=== PATIENT | male | born 1950 | race Two or more races ===

== ENCOUNTER 2018-09-20 14:01 | Inpatient (IN) | payer MEDICARE, OTHER ==
[~2018-09-20] VITALS: Ht 167.6 cm; Wt 87.1 kg
[2018-09-20] MEDS ORDERED: ASPIRIN 81MG TABLET PO ONE (14:45)
[2018-09-20 15:35] LABS: BASOPHILS % 0.4 % (0.0-2.0); EOSINOPHILS % 1.2 % (0.0-5.0); HEMATOCRIT. 44.7 % (42.0-52.0); HEMOGLOBIN. 15.5 g/dL (14.0-18.0); LYMPHOCYTES % 22.6 % (20.0-50.0); MEAN CORPUSCULAR HEMOGLOBIN 31.5 pg (28.0-32.0); MEAN CORPUSCULAR VOLUME 90.6 fL (80.0-94.0); MEAN PLATELET VOLUME 8.7 fl (7.4-10.4); MONOCYTES % 6.9 % (2.0-8.0); NEUTROPHILS % 68.9 % (40.0-76.0); PLATELET 266 x1000/uL (130-400); RED BLOOD CELL COUNT 4.93 mill/uL (4.7-6.1); RED CELL DISTRIBUTION WIDTH 13.3 % (11.6-14.6)
[2018-09-20 15:37] LABS: CHLORIDE 107 mEq/L (98-107)
[2018-09-20] MEDS ORDERED: ZOLPIDEM TARTRATE 5MG TABLET PO PRN (16:15)
[2018-09-20] MEDS ORDERED: NA PHOS,M-B/NA PHOS,DI-BA ENEMA 118ML PR PRN (16:15)
[2018-09-20] MEDS ORDERED: MAGNESIUM/ALUMINUM HYDROXIDE/SIMETHICONE 30ML UDC PO PRN (16:15)
[2018-09-20] MEDS ORDERED: GUAIFENESIN 200MG/10ML SUGAR FREE UDC PO PRN (16:15)
[2018-09-20] MEDS ORDERED: DIPHENHYDRAMINE 50MG/ML VIAL IV PRN (16:15)
[2018-09-20] MEDS ORDERED: ONDANSETRON HCL 4MG/2ML INJ IV PRN (16:15)
[2018-09-20] MEDS ORDERED: IPRATROPIUM/ALBUTEROL 0.5-3(2.5)MG/3ML NEB INH PRN (16:15)
[2018-09-20] MEDS ORDERED: LORAZEPAM 0.5MG TABLET PO PRN (16:15)
[2018-09-20] MEDS ORDERED: MORPHINE SULFATE 10MG/5ML ORAL SOLN UDC PO PRN (16:15)
[2018-09-20] MEDS ORDERED: TRAMADOL 50MG TABLET PO PRN (16:15)
[2018-09-20] MEDS ORDERED: DOCUSATE SODIUM 100MG CAPSULE PO PRN (16:15)
[2018-09-20] MEDS ORDERED: CLONIDINE 0.1MG TABLET PO PRN (16:15)
[2018-09-20 17:13] LABS: INR 1.1; PARTIAL THROMBOPLASTIN TIME 26.5 sec (23.4-31.0); PROTHROMBIN TIME 10.7 sec (9.1-11.1)
[2018-09-20 17:15] LABS: CLARITY URINE CLEAR (CLEAR); COLOR URINE YELLOW (YELLOW); KETONES URINE TRACE (NEGATIVE); LEUKOCYTE ESTERASE URINE NEGATIVE (NEGATIVE); NITRITE URINE NEGATIVE (NEGATIVE); OCCULT BLOOD URINE NEGATIVE (NEGATIVE); PROTEIN URINE NEGATIVE (NEGATIVE); SPECIFIC GRAVITY URINE 1.023 (1.005-1.030); UROBILINOGEN URINE 0.2 E.U./dL (0.2-1.0)
[2018-09-20 17:25] LABS: *AMPHETAMINES SCREEN URINE NEGATIVE (NEGATIVE); *BARBITURATES SCREEN URINE NEGATIVE (NEGATIVE); *BENZODIAZEPINES SCREEN URINE NEGATIVE (NEGATIVE); *COCAINE SCREEN URINE NEGATIVE (NEGATIVE)
[2018-09-20 17:27] LABS: CANNABINOID URINE SCREEN NEGATIVE (NEGATIVE); METHADONE URINE SCREEN NEGATIVE (NEGATIVE); OPIATES URINE SCREEN NEGATIVE (NEGATIVE); PHENCYCLIDINE URINE SCREEN NEGATIVE (NEGATIVE)
[2018-09-20 20:15] VITALS: BP 173/90
[2018-09-20] MEDS ORDERED: ATORVASTATIN CALCIUM 40MG TABLET PO SCH (21:00)
[2018-09-20] MEDS: FAMOTIDINE 20MG TABLET PO SCH (21:23)
[2018-09-20] MEDS: LISINOPRIL 20MG TABLET PO SCH (21:23)
[2018-09-20] MEDS: ENOXAPARIN 40MG/0.4ML SYR SUBCUT SCH (21:24)
[2018-09-20] MEDS: METOPROLOL TARTRATE 25MG TABLET PO SCH (21:24)
[2018-09-20] MEDS: AMLODIPINE 10MG TABLET PO SCH (21:25)
[2018-09-20] MEDS ORDERED: AMLO1TAB14 PO (22:02)
[2018-09-20] MEDS ORDERED: OMEG1CAP17 PO (22:02)
[2018-09-20] MEDS ORDERED: ASPI-986 PO (22:02)
[2018-09-20] MEDS ORDERED: ATOR80TA PO (22:02)
[2018-09-20] MEDS ORDERED: BISO5TAB13 PO (22:04)
[2018-09-20 22:32] VITALS: BP 173/90
[2018-09-20] MEDS ORDERED: PNEUMOCOCCAL 23-VAL P-SAC VAC 0.5 ML IM ONE (23:00)
[2018-09-20] MEDS ORDERED: INFLUENZA VIRUS VACCINE(AFLURIA) 0.5ML SYR IM ONE (23:00)
[2018-09-21] VITALS (14 sets, daily range): BP systolic 108–148; BP diastolic 56–89
[2018-09-21 00:22] LABS: CREATINE KINASE 219 IU/L (39-308)
[2018-09-21 00:23] LABS: CREATINE KINASE MB FRACTION 2.3 ng/mL (0.5-3.6)
[2018-09-21 06:48] LABS: CREATINE KINASE 185 IU/L (39-308)
[2018-09-21 06:49] LABS: CREATINE KINASE MB FRACTION 1.9 ng/mL (0.5-3.6)
[2018-09-21] MEDS ORDERED: IODIXANOL 320MG/ML 100 ML BOTTLE IV ONE (07:31)
[2018-09-21] MEDS ORDERED: LIDOCAINE HCL 1% 20ML VIAL (Pyxis) INJ ONE (07:31)
[2018-09-21] MEDS ORDERED: MIDAZOLAM HCL 2 MG/2 ML VIAL ONE ×2 (08:04→09:01)
[2018-09-21] MEDS ORDERED: FENTANYL CITRATE/PF 50MCG/ML 2ML VIAL ONE (08:05)
[2018-09-21] MEDS ORDERED: IOHEXOL-300 100 ML BOTTLE ONE ×3 (08:49→09:35)
[2018-09-21] MEDS ORDERED: ASPIRIN 325MG EC TABLET PO SCH (09:00)
[2018-09-21] MEDS ORDERED: ASPIRIN 81MG TABLET PO SCH (09:00)
[2018-09-21] MEDS: CLOPIDOGREL 75MG TABLET PO SCH (09:00)
[2018-09-21] MEDS ORDERED: CEFAZOLIN 1000MG PREMIX 50 ML IV ONE (09:37)
[2018-09-21] MEDS ORDERED: CLOPIDOGREL 75MG TABLET ONE (09:38)
[2018-09-21] MEDS ORDERED: ATROPINE SULFATE 1MG/10ML SYR IV PRN (09:45)
[2018-09-21] MEDS ORDERED: CLOPIDOGREL 75MG TABLET PO SCH (09:45)
[2018-09-21] MEDS ORDERED: ACETAMINOPHEN 325MG TABLET PO PRN (09:45)
[2018-09-21] MEDS: FAMOTIDINE 20MG TABLET PO SCH ×2 (11:24→20:16)
[2018-09-21] MEDS: METOPROLOL TARTRATE 25MG TABLET PO SCH ×2 (11:24→20:16)
[2018-09-21] MEDS: AMLODIPINE 10MG TABLET PO SCH (11:24)
[2018-09-21 11:27] LABS: T4 FREE 1.14 ng/dL (0.76-1.46)
[2018-09-21] MEDS: LISINOPRIL 20MG TABLET PO SCH ×2 (11:29→20:16)
[2018-09-21] MEDS: ACETAMINOPHEN 325MG TABLET PO PRN ×3 (11:29→23:29)
[2018-09-21] MEDS ORDERED: HEPARIN SODIUM 1,000 UNIT/1ML VIAL IV ONE (15:40)
[2018-09-21] MEDS ORDERED: NITROGLYCERIN 50MCG/ML 10ML VIAL (CATH LAB) IV ONE (15:46)
[2018-09-21] MEDS: ENOXAPARIN 40MG/0.4ML SYR SUBCUT SCH (20:17)
[2018-09-21] MEDS ORDERED: ATORVASTATIN CALCIUM 20MG TABLET PO SCH (21:00)
[2018-09-22] VITALS (7 sets, daily range): BP systolic 105–135; BP diastolic 64–96
[2018-09-22 07:28] LABS: CHLORIDE 105 mEq/L (98-107)
[2018-09-22 07:29] LABS: BASOPHILS % 0.2 % (0.0-2.0); EOSINOPHILS % 0.1 % (0.0-5.0); HEMATOCRIT. 42.7 % (42.0-52.0); HEMOGLOBIN. 14.6 g/dL (14.0-18.0); LYMPHOCYTES % 11.9 % (20.0-50.0); MEAN CORPUSCULAR HEMOGLOBIN 31.1 pg (28.0-32.0); MEAN CORPUSCULAR VOLUME 91.1 fL (80.0-94.0); MEAN PLATELET VOLUME 8.9 fl (7.4-10.4); MONOCYTES % 4.4 % (2.0-8.0); NEUTROPHILS % 83.4 % (40.0-76.0); PLATELET 251 x1000/uL (130-400); RED BLOOD CELL COUNT 4.69 mill/uL (4.7-6.1); RED CELL DISTRIBUTION WIDTH 13.5 % (11.6-14.6)
[2018-09-22] MEDS: LISINOPRIL 20MG TABLET PO SCH (08:23)
[2018-09-22] MEDS: FAMOTIDINE 20MG TABLET PO SCH (08:23)
[2018-09-22] MEDS: CLOPIDOGREL 75MG TABLET PO SCH (08:23)
[2018-09-22] MEDS: METOPROLOL TARTRATE 25MG TABLET PO SCH (08:24)
[2018-09-22] MEDS: AMLODIPINE 10MG TABLET PO SCH (08:24)
[2018-09-22] MEDS ORDERED: ASPIRIN 325MG TABLET PO SCH (09:00)
== END 2018-09-22 11:36 | disposition home health service (06) | DRG 247 ==
LOC: ER 14:47 → SUPCPDRO 16:07 → 7WST 16:07 → EDBEDREQ 16:10 → EDBEDREQTM 16:10 → ENRESERV 18:02 → 3WST 09-21 10:04
PROVIDERS: ADMIT Internal Medicine; ATTEND Internal Medicine
PROC: 027035Z Dilation of Coronary Artery, One Artery with Two Drug-eluting Intraluminal Devices, Percutaneous Approach (ICD-10-PCS; principal; 2018-09-21)
PROC: 4A023N7 Measurement of Cardiac Sampling and Pressure, Left Heart, Percutaneous Approach (ICD-10-PCS; 2018-09-21)
PROC: B2111ZZ Fluoroscopy of Multiple Coronary Arteries using Low Osmolar Contrast (ICD-10-PCS; 2018-09-21)
PROC: B2131ZZ Fluoroscopy of Multiple Coronary Artery Bypass Grafts using Low Osmolar Contrast (ICD-10-PCS; 2018-09-21)
PROC: B2181ZZ Fluoroscopy of Left Internal Mammary Bypass Graft using Low Osmolar Contrast (ICD-10-PCS; 2018-09-21)
DX: T82.857A Stenosis of other cardiac prosthetic devices, implants and grafts, initial encounter (principal); I25.110 Atherosclerotic heart disease of native coronary artery with unstable angina pectoris; Y83.2 Surgical operation with anastomosis, bypass or graft as the cause of abnormal reaction of the patient, or of later complication, without mention of misadventure at the time of the procedure; I10 Essential (primary) hypertension; Z79.82 Long term (current) use of aspirin; I25.82 Chronic total occlusion of coronary artery; E78.5 Hyperlipidemia, unspecified; E78.00 Pure hypercholesterolemia, unspecified; Y92.89 Other specified places as the place of occurrence of the external cause; Z79.899 Other long term (current) drug therapy; T82.855A Stenosis of coronary artery stent, initial encounter
CPT/HCPCS: 36415; 71045; 80048; 80061; 80305; 82550; 82553; 83036; 83735; 83880; 84439; 84443; 84484; 85347; 85379; 86850; 86900; 90686; 90732; 92937; 93005; 93306; 93455; 96374; 99285; C1760; C1769; C1874; C1887; C1893; J0690; J1200; J1644; J1650; J2250; J3010; J3490; Q9967